=== PATIENT | male | born 1940 | race Caucasian/White ===

== ENCOUNTER 2024-12-16 15:31 | Outpatient (CLI) | payer MEDICARE, SELFPAY ==
--- NOTE | 2024-12-16 15:39 | MRR_ITS ---
PROCEDURE INFORMATION: Exam: MR Face Without and With Contrast Exam date and time: 12/16/2024 3:52 PM Age: 84 years old Clinical indication: Condition or disease; Other: Mass; -pain on back of tongue favoring left side swollen area at base of left ear; Additional info: Neoplasm uncertain behavior oropharynx TECHNIQUE: Imaging protocol: Magnetic resonance imaging of the face including orbits without and with contrast. Contrast material: MULTIHANCE; Contrast volume: 18 ml; Contrast route: INTRAVENOUS (IV); COMPARISON: No relevant prior studies available. FINDINGS: Paranasal sinuses: No fluid levels. Orbital cavities: Orbits are normal. Globes are unremarkable. Nasopharynx: Pharynx: See Soft tissues finding. Larynx: Visualized larynx is unremarkable. Salivary glands: Visualized submandibular and parotid glands are unremarkable. Lymph nodes: Bilateral cervical lymphadenopathy is noted. Most prominently this is seen in left level 3 and 4 and right level 1B. There also level 2a lymph nodes adjacent to the anterior margin of the sternocleidomastoid muscle. Abnormal lymph nodes on the left appear to compress the left internal jugular vein which can not be entirely followed through its course. Soft tissues: Mass centered in the left side of the oral tongue is noted with extension across the midline to the right, inferiorly to the floor of the mouth and laterally just beyond the mylohyoid muscle, into the submandibular space. Posteriorly there is effacement of the left side of the oropharynx and extension into the left oral tonsil. Mass overall measures approximately 5.4 x 4.7 x 5.6 cm. Bones/joints: Unremarkable. MR/MR orbit face neck wo/w* [id number] IMPRESSION: 1. Mass centered in the left side of the oral tongue is noted with extension across the midline to the right, inferiorly to the floor of the mouth and laterally just beyond the mylohyoid muscle, into the submandibular space. Posteriorly there is effacement of the left side of the oropharynx and extension into the left oral tonsil. Mass overall measures approximately 5.4 x 4.7 x 5.6 cm. 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 2. Abnormal lymph nodes on the left appear to compress the left internal jugular vein which can not be entirely followed through its course.
[2024-12-16] MEDS: gadobenate dimeglumine 20 mL vial 18 ML IV (16:15)
== END 2024-12-16 15:32 | disposition home or self-care (01) ==
LOC: RAD 15:34
PROVIDERS: Family Provider Nurse Practitioner Family; PCP Nurse Practitioner Family; Visit Provider Nurse Practitioner Family
DX: D37.05 Neoplasm of uncertain behavior of pharynx (principal); H92.02 Otalgia, left ear; I89.8 Other specified noninfective disorders of lymphatic vessels and lymph nodes
CPT/HCPCS: 70543; A9577

== ENCOUNTER → 2025-01-12 14:15 | Outpatient (BNVA) | payer MEDICARE, SELFPAY | PROVIDERS: PCP Nurse Practitioner Family; Visit Provider Surgery | DX: C01 Malignant neoplasm of base of tongue (principal) | CPT/HCPCS: 74018; 99204 ==

== ENCOUNTER 2025-01-18 07:15 | Day surgery (SDC) | payer MEDICARE, SELFPAY ==
[2025-01-18] VITALS (16 sets, daily range): BP systolic 78–136; BP diastolic 40–67; PULSE 53–76; RESP 14–20; TEMP 36.1–36.5; O2SAT 93–100; BMI 27.5
--- NOTE | 2025-01-18 07:53 | P.HPUD_ITS ---
Surgery/Procedure H&P Update DATE OF PROCEDURE: January 18, 2025 DATE H&P PERFORMED: 01/12/25 H&P UPDATE INFORMATION: I have reviewed H&P completed within last 30 days, I have examined patient prior to procedure, No changes to prior documentation, H&P is in [facility] EMR on date indicated and Risks and benefits of the procedure reviewed PLANNED PROCEDURE: Operation Date: 01/18/25 09:00 Proposed Procedures p Portacath Placement 74549 C01(Not Applicable) - Christopher Ricardo MD s Peg Tube Placement with guidance of an EGD(Not Applicable) - Christopher Ricardo MD s EGD with Biopsy(Not Applicable) - Christopher Ricardo MD
--- NOTE | 2025-01-18 08:59 | ANES.PREANE2 ---
Pre-Anesthetic Assessment Height/Weight: Height 5 ft 8 in Weight 181 lb Temp Pulse Resp BP Pulse Ox O2 Del Method 97.7 F 58 L 18 136/67 96 Room Air 01/18/25 07:37 01/18/25 07:37 01/18/25 07:37 01/18/25 07:37 01/18/25 07:37 01/18/25 07:37 Preop Diagnosis: Tongue mass Operation Date: 01/18/25 09:00 Proposed Procedures p Portacath Placement 48385 C01(Not Applicable) - Christopher Ricardo MD s Peg Tube Placement with guidance of an EGD(Not Applicable) - Christopher Ricardo MD s EGD with Biopsy(Not Applicable) - Christopher Ricardo MD Was Beta Zunilda taken within 24 hours: N/A Was Clonidine taken within 24 hours: N/A Last intake: Intake Last Liquid Date 01/17/25 Last Liquid Time 21:00 Last Solid Date 01/17/25 Last Solid Time 19:00 Social No alcohol and No tobacco Exam alert, oriented x 3, clear to auscultation bilaterally and regular rate & rhythm Airway Submandibular: Other (Large tongue mass) Mallampati: Class III Comments: Comments: Edentulous Anesthetic Plan ASA status: 3 Anesthesia: General Other: No prior issues with anesthesia NPO since yesterday evening Patient has a large mass on the base of the tongue Patient notes that he is unable to wear dentures and therefore his food has to be pur?ed but he states he is able to swallow just fine and has no breathing complications. 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 Plan for GETA with video laryngoscopy Medications/Allergies Home Medications ?Medication ?Instructions ?Recorded ?Confirmed ?Last Taken ?Type acetaminophen 650 mg 650 mg PO Q12H 01/06/25 01/14/25 01/17/25 History tablet,extended release (Tylenol Arthritis Pain) lisinopril 30 mg tablet 30 mg PO DAILY 01/06/25 01/14/25 01/17/25 History verapamil 240 mg tablet,extended 240 mg PO DAILY 01/06/25 01/14/25 01/17/25 History release Allergies Allergy/AdvReac Type Severity Reaction Status Date / Time No Known Drug Allergies Allergy Unknown Unknown Verified 01/12/25 14:18 Current Medications Generic Name Dose Route Start Last Admin Trade Name Freq PRN Reason Stop Dose Admin Sodium Chloride 1,000 mls @ 30 mls/hr 01/18/25 07:30 01/18/25 07:56 Sodium Chloride 0.9% IV 01/19/25 07:29 30 mls/hr .Q24H ALBA Administration PFSH Anesthesia Social History Smoking and tobacco/nicotine status: former use of tobacco/nicotine
[2025-01-18] MEDS: ceFAZolin 2,000 mg SDV 2000 MG IVP (09:05)
--- NOTE | 2025-01-18 09:14 | SC_ITS ---
WS: [id number] INTRAOPERATIVE TECHNIQUE: 2 Spot fluoroscopic images for intraoperative purposes. FLUOROSCOPY TIME: 14.2 seconds CLINICAL INFORMATION: GIOVANA CATH FINDINGS: RIGHT Port-A-Cath with tip in the SVC in good position. Endotracheal tube with tip above the dori. No visualized pneumothorax. SC/C-arm FL for CVA [id number] IMPRESSION: Images obtained for intraoperative purposes.
[2025-01-18] MEDS: BUPivacaine 0.25% INJ 10 mL INJECTION (09:29)
[2025-01-18] MEDS: heparin, porcine 1,000 unit/mL INJ 10 mL 10000 UNIT IRRIGATION (09:29)
[2025-01-18] MEDS: lidocaine-epi 1% 20 mL INJ (09:29)
--- NOTE | 2025-01-18 10:28 | PM.OP ---
Operative Report Date of procedure: January 18, 2025 Pre-op diagnosis: History of head and neck cancer. Post-op diagnosis: Same Post-op findings: Normal vascular anatomy of the right IJ Procedure done: Port-A-Cath placement and PEG tube placement Pathology: None Surgeon: Christopher Ricardo MD Computer Numerical Control Machinist: OSCAR OR STaff Estimated blood loss: 5 Complications: none apparent Brief History: Patient was referred to my office for Port-A-Cath placement and for PEG placement due to carcinoma of the base of the tongue causing dysphagia. After discussion we will resume benefits as documented. Note we decided to proceed. Procedure: Patient was brought into the OR, he was placed in a supine position, general anesthesia was given. Timeout was conducted after the skin was prepped and draped in the usual sterile fashion. I then proceeded to identify the right IJ vein with ultrasound, I infiltrated local anesthesia on top of the vein. I then proceeded to cannulate the vein under direct ultrasound guidance using an 18-gauge needle, the needle tip was seen entering the vein and immediate return of blood was noted. A wire was advanced through the needle and the needle was removed. The position of the wire was verified with ultrasound and fluoroscopy. The wire was then fixed to the drapes. I then placed my attention to the chest, local anesthesia was infiltrated in the previously marked area on the chest and then a tract connecting the chest to the wire insertion site in the neck. I then proceeded to make a 3.5 cm incision in the right upper chest, the incision was deepened to subcutaneous tissue with electrocautery and electrocautery was used to create the subcutaneous pocket to house the Port-A-Cath. I then proceeded to use a hemostat to create a tunnel from the chest wound to the neck. I then proceeded to make a 0.5 cm incision at the level of the wire insertion site in the neck. Hemostasis was verified. I then placed the Port-A-Cath in the pocket and tunneled the catheter using the provided tunneler. The catheter was cut to appropriate length under fluoroscopy guidance and then flushed. I then proceeded to insert an introducer with a peel-off sheath over the wire under direct fluoroscopic guidance. I then remove the wire and the introducer leaving the peel-off sheath in place. The catheter was then advanced through the peel-off sheath and the peel-off sheath was removed leaving the catheter in place. Fluoroscopy showed evidence of Adequate catheter position. I then proceeded to access the port; the port was retrieving blood and flushing fine, I then hep-locked the catheter. Hemostasis was verified. The wound was closed in layers using #3-0 Vicryl for the subcutaneous tissue and #4 Monocryl for the skin. Dermabond was applied. At the end of the procedure all counts were correct. The patient tolerated well the procedure and remained in the OR for PEG tube placement which will be dictated separately.
--- NOTE | 2025-01-18 12:15 | ANE.PACU2 ---
Inpatient post-anesthesia follow up: Airway intact: Yes Vital signs: Temperature 97.4 F Pulse Rate 53 Respiratory Rate 18 Blood Pressure 114/52 Pulse Oximetry 97 Oxygen Delivery Me thod Room Air Oxygen Flow Rate 5 Fraction of Inspir ed Oxygen Hydration adequate: Yes Nausea and vomiting: No Pain level: 1 Mental status: Baseline
== END 2025-01-18 12:15 | disposition home or self-care (01) ==
PROVIDERS: PCP Family Medicine; Visit Provider Surgery
PROC: (CPT 36561; principal; 2025-01-18 08:50)
PROC: 0DH63UZ Insertion of Feeding Device into Stomach, Percutaneous Approach (ICD-10-PCS; CPT 43246; 2025-01-18 08:50)
DX: C76.0 Malignant neoplasm of head, face and neck (principal); I10 Essential (primary) hypertension; Z87.891 Personal history of nicotine dependence
CPT/HCPCS: 36561; 77001; C1788; J0330; J0690; J1644; J2704; J3010; J3490; J7030; J9999

== ENCOUNTER 2025-02-03 08:36 | Oncology outpatient (recurring) (ONCR) | payer MEDICARE, SELFPAY ==
[2025-01-06 09:59] LABS: Hematocrit 41.0 % (37-53); Hemoglobin 13.50 g/dL (11.27-16.99); Mean Corpuscular HGB Conc 32.9 g/dL (30-55); Mean Corpuscular Hemoglobin 29.9 pg (27-33); Mean Corpuscular Volume 90.7 fl (82-101); Nucleated Red Blood Cells % 0 %; Platelet Count 166 10^3/cmm (157-399); Red Blood Count 4.52 10^6/uL (3.85-5.65); White Blood Count 8.14 10^3/uL (3.29-11.43)
--- NOTE | 2025-01-06 10:08 | N.ONRAD NP_ITS ---
[facility] Oncology New Patient Visit Patient: Richar Bailey MR#: [id number] : 1940 Age: 84 Sex: Male Dictated by: Israel Torres Date of Service: 01/06/2025 Referring Physician(s) : Dr. 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 Chief Complaint / History of Present Illness: This is a very pleasant 84-year-old male that looks younger than stated age. He saw his PCP who referred him to Dr. Dr. Alegria. He was found to have a mass involving the left retromolar trigone extending into the left oropharynx. Tongue deviates to the left posterior mobile tongue tethered to the left soft palate. Patient to have at least a 5 cm hard left BOT mass primarily submucosal with a small exophytic portion that is ulcerated. BX on 12/23/2024 showed ulcerated invasive SCC-MD left BOT. MRI of the orbits face and neck showed bilateral cervical lymphadenopathy prominently on the left level 3 4 and right level 1B there is also a level 2A lymph nodes adjacent to the anterior margin of the sternocleidomastoid muscle. The lymph nodes on the left appear to compress the left IJV. The mass centers on the left side of the oral tongue with extension across midline to the right inferiorly to the FOM and the laterally just beyond the mylohyoid muscle into the submandibular space. Posteriorly there is effacement of the left side of the oropharynx and extension into the left oral tonsil. Mass measures 5.4 x 4.7 x 5.6 cm. Patient has upper and lower dentures but cannot put in the lower dentures due to the mass. Current Medications: acetaminophen ER (Tylenol Arthritis Pain) 650 mg PO Q12H lisinopril mg PO verapamil ER mg PO Allergies: No Known Drug Allergies Allergy Medical History: No history of collagen vascular disease. No previous radiation therapy. Surgical History: As above plus appendectomy Family History: No history of carcinoma mother and father in her mid to late 90s Social History: Smoking and tobacco/nicotine status: former use of tobacco/nicotine 20 pack years. Patient chewed for approximately 15 more years. Patient admitted to drinking beer and liquor and quit in 73 when he quit smoking also. 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 Current Complaints / Review of Systems: . Vital Signs: Performed on 01/06/2025 8:57 AM BMI - 27.673 kg/m2 (high), Height - 68 in, Weight - 182 lbs, Temperature - 98.7 f, Pulse - 64 /min, Respiration - 17 /min, O2 Sat - 96 %, Pain - 0, Fatigue - 0 and BP - 144/ 53 mm(hg)(high/low). Physical Exam: Patient alert and oriented and answers questions appropriately. Neck shows no demonstratable lymphadenopathy even though MRI shows lymphadenopathy. Oral exam shows tethered left sided tumor base of tongue/tonsil and R MT. No bony tenderness appreciated. Lungs clear to auscultation abdomen soft nontender with no hepatosplenomegaly. Extremities intact x 4. Performance Status: KPS 90 Pathology: Primary, c01 - malignant neoplasm of base of tongue, Diagnosed 12/23/2024 (active) and Primary, c77.0 - secondary and unspecified malignant neoplasm of lymph nodes of head, face and neck, Diagnosed 12/16/2024 (active) . 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 Questions answered. NCCN guidelines version 1.2024 were discussed Side effects discussed Plan combined chemoradiation therapy utilizing IMRT based XRT to 7000 cGy in 25 fractions. Signed by: 01/06/2025 10:07:24 AM <<Signature on File>> Time spent with patient: 75 minutes including prep and examination CPT Code: CPT Code:
[2025-01-06 10:12] LABS: Alanine Aminotransferase 57 U/L (0-41); Albumin Level 4.5 g/dL (3.5-5.2); Alkaline Phosphatase 70 U/L (40-130); Anion Gap 17.7 (5-19); Aspartate Amino Transferase 21 U/L (0-40); Blood Urea Nitrogen 36 mg/dL (8-23); Calcium 10.0 mg/dL (8.5-10.5); Carbon Dioxide 23 mmol/L (22-29); Chloride 101 mmol/L (98-107); Creatinine Clr Calc Pharmacy 61.7180; Globulin 3.1 g/dL (1.3-4.6); Glucose 114 mg/dL (65-115); Osmolality Calculated 293 mOsm/kg (285-295); Potassium 4.7 mmol/L (3.5-5.1); Sodium 137 mmol/L (136-145); Total Protein 7.6 g/dL (6.6-8.7)
--- NOTE | 2025-01-15 12:30 | PETR_ITS ---
PROCEDURE INFORMATION: Exam: PET/CT Skull Base to Mid-thigh Exam date and time: 01/15/2025 2:00 PM Age: 84 years old Clinical indication: Condition or disease; Primary cancer: Cancer of base of tongue; Initial oncological staging assessment LABS AND CLINICAL REPORTS: Glucose: 106 mg/dl Treatment strategy for malignancy (PET staging): Initial Staging (PI) TECHNIQUE: Imaging protocol: Following at least four-hour fasting and following the injection of radiopharmaceutical, low dose CT images were obtained. Then, PET images were obtained. Attenuation corrected images were constructed using the CT scan. Fused images of PET and CT were reviewed. The standardized uptake values (SUV) reported below are maximum values within a region of interest, expressed in gm/ml. Exam includes orbital meatal line to mid-thigh. SUV normalization method: BodyWeight Radiopharmaceutical: 10.8 mCi F-18 FDG (Fluorodeoxyglucose), IV. Time of imaging post radiopharmaceutical administration: 51 minutes Injection site: left ac COMPARISON: 1. CR XR KUB [id number] 01/12/2025 4:28 PM 2. MR orbit face neck wo/w* [id number] 12/16/2024 3:52 PM FINDINGS: Brain: Visualized brain has normal physiologic uptake. Oral cavity: Large FDG avid left tongue mass shows SUV max 14.9, better delineation of margins on comparison MRI. Pharynx: No abnormal uptake. Larynx: No abnormal uptake. Lungs, pleura and trachea: No abnormal uptake. Bilateral calcified granulomata. Mild dependent atelectasis. Mild subsegmental atelectasis versus scarring at the lower lungs. No consolidation or mass. Heart: Normal physiologic uptake. Coronary arteries: Heavy coronary artery calcification. Mediastinal space: No abnormal uptake. Diaphragm: Small hiatal hernia. Liver: No abnormal uptake. Calcified granulomata. Gallbladder and biliary ducts: No abnormal uptake. Pancreas: No abnormal uptake. Spleen: No abnormal uptake. Calcified granulomata. Adrenal glands: No abnormal uptake. Kidneys and ureters: Normal physiologic uptake. Photopenic fluid density right renal cysts. Stomach and bowel: FDG uptake along the ascending colon with relative thickening at underdistended hepatic flexure. Reproductive: Prostatomegaly without abnormal uptake. Vasculature: No abnormal uptake. 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 Lymph nodes: Focal FDG uptake at the left lateral retropharyngeal region showing SUV max 10.3 on axial image 21 may represent abnormal lymph node. FDG avid bilateral level 2 cervical lymphadenopathy with index right-sided node measuring 1.4 cm in the short axis on axial image 38 showing SUV max 11.0 and index left-sided node measuring 0.8 cm in the short axis on axial image 35 showing SUV max 8.8. Bilateral level 5 cervical lymphadenopathy with index right-sided node measuring 0.9 cm in the short axis on axial image 50 showing SUV max 12.2 and left-sided node measuring approximately 1.2 cm in the short axis on axial image 57 showing SUV max 9.4. Skeleton: Degenerative changes along the axial and proximal appendicular skeletal system. Soft tissues: No abnormal uptake in the visualized head, neck, chest, abdomen, pelvis, and extremities. METRICS: Mediastinal blood pool: SUV mean 2.3 Liver uptake: SUV mean 2.6 PET/PET skull to thigh INIT [id number] IMPRESSION: 1. Large FDG avid left tongue mass compatible with malignancy. 2. Bilateral metastatic cervical lymphadenopathy, to include suspected abnormal lateral left retropharyngeal lymphadenopathy. 3. FDG uptake along the ascending colon with relative thickening at underdistended hepatic flexure may be physiologic, infectious or inflammatory, neoplasm not entirely excluded. 4. Additional chronic and incidental findings as above, to include atherosclerosis with heavy coronary artery calcification, 4.3 cm ascending aortic ectasia, and 3.1 cm infrarenal abdominal aortic aneurysm.
[2025-01-28 07:54] LABS: Hematocrit 37.8 % (37-53); Hemoglobin 12.30 g/dL (11.27-16.99); Mean Corpuscular HGB Conc 32.5 g/dL (30-55); Mean Corpuscular Hemoglobin 29.6 pg (27-33); Mean Corpuscular Volume 91.1 fl (82-101); Nucleated Red Blood Cells % 0 %; Platelet Count 170 10^3/cmm (157-399); Red Blood Count 4.15 10^6/uL (3.85-5.65); White Blood Count 6.94 10^3/uL (3.29-11.43)
[2025-01-28 08:12] LABS: Alanine Aminotransferase 22 U/L (0-41); Albumin Level 4.3 g/dL (3.5-5.2); Alkaline Phosphatase 58 U/L (40-130); Anion Gap 15.6 (5-19); Aspartate Amino Transferase 15 U/L (0-40); Blood Urea Nitrogen 29 mg/dL (8-23); Calcium 9.9 mg/dL (8.5-10.5); Carbon Dioxide 26 mmol/L (22-29); Chloride 100 mmol/L (98-107); Creatinine Clr Calc Pharmacy 68.2421; Globulin 2.8 g/dL (1.3-4.6); Glucose 113 mg/dL (65-115); Osmolality Calculated 291 mOsm/kg (285-295); Potassium 4.6 mmol/L (3.5-5.1); Sodium 137 mmol/L (136-145); Total Protein 7.1 g/dL (6.6-8.7)
[2025-01-28] MEDS: sodium chlor 0.9% + KCl 20 mEq 20 MEQ/1,000 ML BAG 800 MEQ IV (10:21)
[2025-01-28] MEDS: magnesium sulfate premix 2 GM/50 ML PIGGYBACK IV (10:23)
[2025-01-28] MEDS: aprepitant 130 mg/18 ml SDV IVP (11:47)
[2025-01-28] MEDS: diphenhydrAMINE 50 mg/mL SDV 1mL 25 MG IVP (11:54)
[2025-01-28] MEDS: SODIUM CHLORIDE 0.9% IV (12:32)
[2025-01-28] MEDS: CISPLATIN IV (12:32)
[2025-01-28] MEDS: FUROsemide 10 mg/mL SDV 2mL 20 MG IVP (13:45)
[2025-01-28 15:05] VITALS: BP 157/75; PULSE 55; RESP 17; TEMP 36.6; O2SAT 98
--- NOTE | 2025-02-02 09:37 | ONCRAD TMN_ITS ---
Radiation Oncology Weekly Treatment Management Patient: Richar Bailey MR#: [id number] : 1940 Attending Physician: Dr. Israel Torres Date of Service: 02/02/2025 Referring Physician(s) : Diagnosis: C01 - Malignant neoplasm of base of tongue, Diagnosed 12/23/2024 (Active) C77.0 - Secondary and unspecified malignant neoplasm of lymph nodes of head, face and neck, Diagnosed 12/16/2024 (Active) Radiotherapy to date: Course: BOT HN 2024, Treatment Site: BOT HN 70/63/56Gy, Ref. ID: [id number], Energy: 6X, Dose/Fx (cGy): 200, #Fx: 4 / 35, Dose Correction (cGy): 0, Total Dose Delivered (cGy): 800, Start Date: 01/28/2025, Elapsed Days: 5 Reason for visit: The patient is being seen today as part of their regularly scheduled weekly on treatment visits to assess for acute toxicities from radiotherapy. Review of Systems: Patient feels his feeding tube is too tight as it relates to the scan. He gets chemotherapy on labs are adequate at this time. He uses Magic mouthwash few times a day. He utilizes the PEG tube for fluid flushes only at this time. He has gained 2 pounds since last visit. He utilizes MiraLAX daily to maintain consistency. Vital Signs: Performed on 02/02/2025 9:21 AM BMI - 27.004 kg/m2 (high), Height - 68 in, Weight - 177.6 lbs, Temperature - 97.2 f, Pulse - 62 /min, Respiration - 18 /min, O2 Sat - 100 %, Pain - 0, Fatigue - 0 and BP - 155/ 69 mm(hg)(high/). Physical Exam: AAOx3. Skin around the feeding tube is slightly erythematous. No expression of pus noted. Imaging: Radiation therapy imaging related to accurate target localization (i.e. KV, MV and CBCT) was reviewed. Appropriate changes, if any, were made to ensure treatment accuracy. Plan: Continue XRT He is to see his surgeon today regarding his feeding tube Continue chemotherapy on . Signed by: Israel Torres 02/02/2025 9:36:38 AM
== END 2025-02-03 23:59 | disposition home or self-care (01) ==
PROVIDERS: Internal Medicine; Nurse Practitioner Family; PCP Nurse Practitioner Family; Referring Provider Anesthesiology; Visit Provider Radiology Radiation Oncology
DX: Z51.0 Encounter for antineoplastic radiation therapy (principal); C01 Malignant neoplasm of base of tongue; C77.0 Secondary and unspecified malignant neoplasm of lymph nodes of head, face and neck
CPT/HCPCS: 36415; 77300; 77301; 77334; 77338; 77386; 77470; 78815; 80053; 83615; 85025; 96366; 96368; 96375; 96413; 99024; 99204; 99205; 99213; 99215; A9552; J0185; J1100; J1200; J1938; J2469; J3475; J3480; J3490; J7040; J7050; J9060; J9999

== ENCOUNTER 2025-02-04 08:48 | Oncology outpatient (recurring) (ONCR) | payer MEDICARE, SELFPAY ==
[2025-02-04 09:30] LABS: Hematocrit 36.2 % (37-53); Hemoglobin 11.80 g/dL (11.27-16.99); Mean Corpuscular HGB Conc 32.6 g/dL (30-55); Mean Corpuscular Hemoglobin 29.4 pg (27-33); Mean Corpuscular Volume 90.3 fl (82-101); Nucleated Red Blood Cells % 0 %; Platelet Count 133 10^3/cmm (157-399); Red Blood Count 4.01 10^6/uL (3.85-5.65); White Blood Count 8.00 10^3/uL (3.29-11.43)
[2025-02-04 09:40] LABS: Alanine Aminotransferase 31 U/L (0-41); Albumin Level 4.0 g/dL (3.5-5.2); Alkaline Phosphatase 61 U/L (40-130); Anion Gap 16.4 (5-19); Aspartate Amino Transferase 21 U/L (0-40); Blood Urea Nitrogen 26 mg/dL (8-23); Calcium 9.5 mg/dL (8.5-10.5); Carbon Dioxide 25 mmol/L (22-29); Chloride 99 mmol/L (98-107); Creatinine Clr Calc Pharmacy 68.5823; Globulin 2.9 g/dL (1.3-4.6); Glucose 112 mg/dL (65-115); Osmolality Calculated 288 mOsm/kg (285-295); Potassium 4.4 mmol/L (3.5-5.1); Sodium 136 mmol/L (136-145); Total Protein 6.9 g/dL (6.6-8.7)
[2025-02-04] MEDS: sodium chlor 0.9% + KCl 20 mEq 20 MEQ/1,000 ML BAG 500 MEQ IV (11:26)
[2025-02-04] MEDS: magnesium sulfate premix 2 GM/50 ML PIGGYBACK IV (11:27)
[2025-02-04] MEDS: aprepitant 130 mg/18 ml SDV IVP (11:28)
[2025-02-04] MEDS: diphenhydrAMINE 50 mg/mL SDV 1mL 25 MG IVP (11:39)
[2025-02-04] MEDS: CISPLATIN IV (13:28)
[2025-02-04] MEDS: SODIUM CHLORIDE 0.9% IV (13:28)
[2025-02-04] MEDS: FUROsemide 10 mg/mL SDV 2mL 20 MG IVP (14:27)
[2025-02-04 15:20] VITALS: BP 118/62; PULSE 79; RESP 18; TEMP 36.1; O2SAT 96
== END 2025-02-04 23:59 | disposition home or self-care (01) ==
PROVIDERS: Nurse Practitioner Family; PCP Nurse Practitioner Family; Referring Provider Anesthesiology; Visit Provider Radiology Radiation Oncology
DX: Z51.0 Encounter for antineoplastic radiation therapy (principal); Z51.11 Encounter for antineoplastic chemotherapy; C01 Malignant neoplasm of base of tongue; R12 Heartburn; Z87.891 Personal history of nicotine dependence; Z95.828 Presence of other vascular implants and grafts; Z79.899 Other long term (current) drug therapy; Z79.630 Long term (current) use of alkylating agent
CPT/HCPCS: 77336; 77386; 80053; 85025; 96365; 96366; 96367; 96368; 96375; 96417; 99214; J0185; J1100; J1200; J1938; J2469; J3475; J3480; J3490; J7040; J7050; J9060; J9999

== ENCOUNTER 2025-02-18 09:45 | Oncology outpatient (recurring) (ONCR) | payer MEDICARE, SELFPAY ==
--- NOTE | 2025-02-09 09:49 | ONCRAD TMN_ITS ---
Radiation Oncology Weekly Treatment Management Patient: Richar Bailey MR#: [id number] : 1940 Attending Physician: Dr. Ba Zuniga Date of Service: 02/09/2025 Referring Physician(s) : Diagnosis: C01 - Malignant neoplasm of base of tongue, Diagnosed 12/23/2024 (Active) C77.0 - Secondary and unspecified malignant neoplasm of lymph nodes of head, face and neck, Diagnosed 12/16/2024 (Active) Radiotherapy to date: Course: BOT HN 2024, Treatment Site: BOT HN 70/63/56Gy, Ref. ID: [id number], Energy: 6X, Dose/Fx (cGy): 200, #Fx: 9 / 35, Dose Correction (cGy): 0, Total Dose Delivered (cGy): 1,800, Start Date: 01/28/2025, Elapsed Days: 12 Reason for visit: The patient is being seen today as part of their regularly scheduled weekly on treatment visits to assess for acute toxicities from radiotherapy. Review of Systems: Eating well. Some loss of taste and dry mouth. Gargling with salt and soda. Very little swallowing pain. Constipation treated with Miralax and M of M. PEG tube flushed. Tightness of collar adjusted. Some discharge around PEG. Vital Signs: Performed on 02/09/2025 9:03 AM BMI - 26.578 kg/m2 (high), Height - 68 in, Weight - 174.8 lbs, Temperature - 97.2 f, Pulse - 56 /min (low), Respiration - 17 /min, O2 Sat - 96 %, Pain - 0, Fatigue - 0 and BP - 134/ 68 mm(hg). Physical Exam: PEG tube site good. Collar well placed not excessively tight. Minimal erythema around exit site. Imaging: Radiation therapy imaging related to accurate target localization (i.e. KV, MV and CBCT) was reviewed. Appropriate changes, if any, were made to ensure treatment accuracy. Plan: Good tolerance of treatment. Continue as planned. Signed by: Dr. Ba Zuniga 02/09/2025 9:48:18 AM
[2025-02-11 09:05] LABS: Hematocrit 33.9 % (37-53); Hemoglobin 11.30 g/dL (11.27-16.99); Mean Corpuscular HGB Conc 33.3 g/dL (30-55); Mean Corpuscular Hemoglobin 30.2 pg (27-33); Mean Corpuscular Volume 90.6 fl (82-101); Nucleated Red Blood Cells % 0 %; Platelet Count 122 10^3/cmm (157-399); Red Blood Count 3.74 10^6/uL (3.85-5.65); White Blood Count 8.14 10^3/uL (3.29-11.43)
[2025-02-11 09:24] LABS: Alanine Aminotransferase 70 U/L (0-41); Albumin Level 4.0 g/dL (3.5-5.2); Alkaline Phosphatase 71 U/L (40-130); Anion Gap 15.6 (5-19); Aspartate Amino Transferase 30 U/L (0-40); Blood Urea Nitrogen 25 mg/dL (8-23); Calcium 9.4 mg/dL (8.5-10.5); Carbon Dioxide 25 mmol/L (22-29); Chloride 102 mmol/L (98-107); Creatinine Clr Calc Pharmacy 68.4120; Globulin 2.9 g/dL (1.3-4.6); Glucose 111 mg/dL (65-115); Osmolality Calculated 291 mOsm/kg (285-295); Potassium 4.6 mmol/L (3.5-5.1); Sodium 138 mmol/L (136-145); Total Protein 6.9 g/dL (6.6-8.7)
[2025-02-11] MEDS: magnesium sulfate premix 2 GM/50 ML PIGGYBACK IV (11:18)
[2025-02-11] MEDS: sodium chlor 0.9% + KCl 20 mEq 20 MEQ/1,000 ML BAG 500 MEQ IV (11:18)
[2025-02-11] MEDS: aprepitant 130 mg/18 ml SDV IVP (12:23)
[2025-02-11] MEDS: diphenhydrAMINE 50 mg/mL SDV 1mL 25 MG IVP (12:30)
[2025-02-11] MEDS: CISPLATIN IV (13:17)
[2025-02-11] MEDS: SODIUM CHLORIDE 0.9% IV (13:17)
[2025-02-11] MEDS: FUROsemide 10 mg/mL SDV 2mL 20 MG IVP (14:23)
--- NOTE | 2025-02-16 09:37 | ONCRAD TMN_ITS ---
Radiation Oncology Weekly Treatment Management Patient: Lynn Thornton MR#: [id number] : 1940> Attending Physician: Israel Torres Date of Service: 02/16/2025 Referring Physician(s) : Diagnosis: C01 - Malignant neoplasm of base of tongue, Diagnosed 12/23/2024 (Active) C77.0 - Secondary and unspecified malignant neoplasm of lymph nodes of head, face and neck, Diagnosed 12/16/2024 (Active) Radiotherapy to date: Course: BOT HN 2024, Treatment Site: BOT HN 70/63/56Gy, Ref. ID: [id number], Energy: 6X, Dose/Fx (cGy): 200, #Fx: 14 / 35, Dose Correction (cGy): 0, Total Dose Delivered (cGy): 2,800, Start Date: 01/28/2025, Elapsed Days: 19 Reason for visit: The patient is being seen today as part of their regularly scheduled weekly on treatment visits to assess for acute toxicities from radiotherapy. 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 He denies any problems the state. He only uses feeding tube for water flushes. He lost 1 pound. He continues with smoothies. Labs are adequate with lowering platelet count of 102,000. Vital Signs: Performed on 02/16/2025 8:54 AM BMI - 26.518 kg/m2 (high), Height - 68 in, Weight - 174.4 lbs, Temperature - 97 f, Pulse - 64 /min, Respiration - 18 /min, O2 Sat - 95 % (low), Pain - 0, Fatigue - 0 and BP - 161/ 82 mm(hg)(high/). Physical Exam: AAOx3. Skin intact. He uses Druze cream with good response Imaging: Radiation therapy imaging related to accurate target localization (i.e. KV, MV and CBCT) was reviewed. Appropriate changes, if any, were made to ensure treatment accuracy. Plan: Continue XRT Continue chemotherapy as directed Continue using Druze cream. Signed by: Israel Torres 02/16/2025 9:36:29 AM
[2025-02-18 07:55] LABS: Hematocrit 33.6 % (37-53); Hemoglobin 11.40 g/dL (11.27-16.99); Mean Corpuscular HGB Conc 33.9 g/dL (30-55); Mean Corpuscular Hemoglobin 30.9 pg (27-33); Mean Corpuscular Volume 91.1 fl (82-101); Nucleated Red Blood Cells % 0 %; Platelet Count 93 10^3/cmm (157-399); Red Blood Count 3.69 10^6/uL (3.85-5.65); White Blood Count 5.99 10^3/uL (3.29-11.43)
[2025-02-18 08:16] LABS: Alanine Aminotransferase 28 U/L (0-41); Albumin Level 4.0 g/dL (3.5-5.2); Alkaline Phosphatase 71 U/L (40-130); Anion Gap 12.7 (5-19); Aspartate Amino Transferase 14 U/L (0-40); Blood Urea Nitrogen 27 mg/dL (8-23); Calcium 9.5 mg/dL (8.5-10.5); Carbon Dioxide 26 mmol/L (22-29); Chloride 100 mmol/L (98-107); Creatinine Clr Calc Pharmacy 68.4120; Globulin 2.9 g/dL (1.3-4.6); Glucose 108 mg/dL (65-115); Osmolality Calculated 284 mOsm/kg (285-295); Potassium 4.7 mmol/L (3.5-5.1); Sodium 134 mmol/L (136-145); Total Protein 6.9 g/dL (6.6-8.7)
[2025-02-18 10:24] VITALS: BMI 26.4
[2025-02-18 10:25] VITALS: BP 158/63; PULSE 71; RESP 16; TEMP 36.7; O2SAT 97
[2025-02-18] MEDS: magnesium sulfate premix 2 GM/50 ML PIGGYBACK IV (10:56)
[2025-02-18] MEDS: sodium chlor 0.9% + KCl 20 mEq 20 MEQ/1,000 ML BAG 500 MEQ IV (10:57)
[2025-02-18] MEDS: aprepitant 130 mg/18 ml SDV IVP (12:07)
[2025-02-18] MEDS: diphenhydrAMINE 50 mg/mL SDV 1mL 25 MG IVP (12:15)
[2025-02-18] MEDS: CISPLATIN IV (12:57)
[2025-02-18] MEDS: SODIUM CHLORIDE 0.9% IV (12:57)
[2025-02-18] MEDS: FUROsemide 10 mg/mL SDV 2mL 20 MG IVP (14:45)
[2025-02-18 15:58] VITALS: BP 123/69; PULSE 53; RESP 16; TEMP 36.6; O2SAT 96
== END 2025-02-18 23:59 | disposition home or self-care (01) ==
PROVIDERS: Nurse Practitioner; Nurse Practitioner Family; PCP Nurse Practitioner Family; Referring Provider Anesthesiology; Visit Provider Radiology Radiation Oncology
DX: Z53.9 Procedure and treatment not carried out, unspecified reason; Z51.0 Encounter for antineoplastic radiation therapy; Z51.11 Encounter for antineoplastic chemotherapy; C01 Malignant neoplasm of base of tongue; C77.0 Secondary and unspecified malignant neoplasm of lymph nodes of head, face and neck; Z79.630 Long term (current) use of alkylating agent
CPT/HCPCS: 77336; 77386; 80053; 85025; 96361; 96368; 96375; 96413; 99024; 99214; J0185; J1100; J1200; J1938; J2469; J3475; J3480; J3490; J7040; J7050; J9060; J9999

== ENCOUNTER 2025-03-05 08:32 | Oncology outpatient (recurring) (ONCR) | payer MEDICARE, SELFPAY ==
--- NOTE | 2025-02-23 09:26 | ONCRAD TMN_ITS ---
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 ID: PTV 70, Energy: 6X, Dose/Fx (cGy): 200, #Fx: 35, Dose Correction (cGy): 0, Total Dose Delivered (cGy): 3,800, Start Date: 01/28/2025, End Date: 02/23/2025, Elapsed Days: 26 Reason for visit: The patient is being seen today as part of their regularly scheduled weekly on treatment visits to assess for acute toxicities from radiotherapy. Review of Systems: Patient has chemotherapy on . Medical oncology CASH MANAGEMENT COORDINATOR looked at his feeding tube as she had prescribed him Keflex. She is there is mild drainage and she is going to reorder the Keflex. We recommend increasing creams and will use spray or Aquaphor. He continues to use oral foods still. Vital Signs: Performed on 02/23/2025 8:53 AM BMI - 26.426 kg/m2 (high), Height - 68 in, Weight - 173.8 lbs, Temperature - 96.5 f, Pulse - 64 /min, Respiration - 17 /min, O2 Sat - 97 %, Pain - 0, Fatigue - 0 and BP - 157/ 96 mm(hg)(high). Physical Exam: AAOx3. Skin intact. No mucosal breakdown Imaging: Radiation therapy imaging related to accurate target localization (i.e. KV, MV and CBCT) was reviewed. Appropriate changes, if any, were made to ensure treatment accuracy. Plan: Continue XRT. Add in spray Aquaphor liberally Chemotherapy on Refill on pilocarpine for dry mouth which has been helping Refill of Keflex has been ordered by [place] CASH MANAGEMENT COORDINATOR Signed by: Israel Torres 02/23/2025 9:24:34 AM
[2025-02-25 08:41] LABS: Hematocrit 32.6 % (37-53); Hemoglobin 10.80 g/dL (11.27-16.99); Mean Corpuscular HGB Conc 33.1 g/dL (30-55); Mean Corpuscular Hemoglobin 30.0 pg (27-33); Mean Corpuscular Volume 90.6 fl (82-101); Nucleated Red Blood Cells % 0 %; Platelet Count 69 10^3/cmm (157-399); Red Blood Count 3.60 10^6/uL (3.85-5.65); White Blood Count 4.55 10^3/uL (3.29-11.43)
[2025-02-25 09:08] LABS: Alanine Aminotransferase 22 U/L (0-41); Albumin Level 4.1 g/dL (3.5-5.2); Alkaline Phosphatase 67 U/L (40-130); Anion Gap 13.6 (5-19); Aspartate Amino Transferase 15 U/L (0-40); Blood Urea Nitrogen 22 mg/dL (8-23); Calcium 9.1 mg/dL (8.5-10.5); Carbon Dioxide 25 mmol/L (22-29); Chloride 102 mmol/L (98-107); Globulin 2.6 g/dL (1.3-4.6); Glucose 114 mg/dL (65-115); Osmolality Calculated 286 mOsm/kg (285-295); Potassium 4.6 mmol/L (3.5-5.1); Sodium 136 mmol/L (136-145); Total Protein 6.7 g/dL (6.6-8.7)
[2025-02-25] MEDS: sodium chlor 0.9% + KCl 20 mEq 20 MEQ/1,000 ML BAG 500 MEQ IV (09:22)
[2025-02-25] MEDS: magnesium sulfate premix 2 GM/50 ML PIGGYBACK IV (09:23)
--- NOTE | 2025-03-02 09:12 | ONCRAD TMN_ITS ---
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 ID: PTV 70, Energy: 6X, Dose/Fx (cGy): 200, #Fx: 35, Dose Correction (cGy): 0, Total Dose Delivered (cGy): 4,800, Start Date: 01/28/2025, Elapsed Days: 33 Reason for visit: The patient is being seen today as part of their regularly scheduled weekly on treatment visits to assess for acute toxicities from radiotherapy. 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 He was unable to receive chemo last week as his platelets were 69,000. He denies any significant problems. He does nightly salt water washes. Vital Signs: Performed on 03/02/2025 8:40 AM BMI - 26.305 kg/m2 (high), Height - 68 in, Weight - 173 lbs, Temperature - 96.9 f, Pulse - 65 /min, Respiration - 17 /min, O2 Sat - 99 %, Pain - 0, Fatigue - 0 and BP - 146/ 70 mm(hg)(high/). Physical Exam: AAox3. Erythema in the mucosal sites orally. Imaging: Radiation therapy imaging related to accurate target localization (i.e. KV, MV and CBCT) was reviewed. Appropriate changes, if any, were made to ensure treatment accuracy. Plan: Continue XRT Continue salt water gargles. Chemotherapy most likely this week. Signed by: Israel Torres 03/02/2025 9:12:01 AM
[2025-03-04 09:04] LABS: Hematocrit 32.9 % (37-53); Hemoglobin 10.90 g/dL (11.27-16.99); Mean Corpuscular HGB Conc 33.1 g/dL (30-55); Mean Corpuscular Hemoglobin 30.7 pg (27-33); Mean Corpuscular Volume 92.7 fl (82-101); Nucleated Red Blood Cells % 0 %; Platelet Count 70 10^3/cmm (157-399); Red Blood Count 3.55 10^6/uL (3.85-5.65); White Blood Count 4.05 10^3/uL (3.29-11.43)
[2025-03-04] MEDS: sodium chlor 0.9% + KCl 20 mEq 20 MEQ/1,000 ML BAG 500 MEQ IV (09:21)
[2025-03-04 09:26] LABS: Alanine Aminotransferase 37 U/L (0-41); Albumin Level 4.0 g/dL (3.5-5.2); Alkaline Phosphatase 72 U/L (40-130); Anion Gap 16.4 (5-19); Aspartate Amino Transferase 24 U/L (0-40); Blood Urea Nitrogen 22 mg/dL (8-23); Calcium 9.6 mg/dL (8.5-10.5); Carbon Dioxide 24 mmol/L (22-29); Chloride 100 mmol/L (98-107); Creatinine Clr Calc Pharmacy 49.3830; Globulin 2.8 g/dL (1.3-4.6); Glucose 118 mg/dL (65-115); Magnesium 1.8 mg/dL (1.7-2.3); Osmolality Calculated 286 mOsm/kg (285-295); Potassium 4.4 mmol/L (3.5-5.1); Sodium 136 mmol/L (136-145); Total Protein 6.8 g/dL (6.6-8.7)
[2025-03-04] MEDS: magnesium sulfate premix 2 GM/50 ML PIGGYBACK IV (10:00)
[2025-03-04] MEDS: ROMIPLOSTIM 125 MCG 80 MCG SUBCUT (11:36)
== END 2025-03-07 23:59 | disposition home or self-care (01) ==
PROVIDERS: Internal Medicine; PCP Nurse Practitioner Family; Referring Provider Anesthesiology; Visit Provider Radiology Radiation Oncology
DX: Z51.0 Encounter for antineoplastic radiation therapy (principal); C01 Malignant neoplasm of base of tongue; C77.0 Secondary and unspecified malignant neoplasm of lymph nodes of head, face and neck
CPT/HCPCS: 77336; 77386; 80053; 83615; 83735; 85025; 96365; 96366; 96367; 96377; 99024; 99213; J2802; J3475; J3480

== ENCOUNTER 2025-03-18 07:30 | Oncology outpatient (recurring) (ONCR) | payer MEDICARE, SELFPAY ==
--- NOTE | 2025-03-09 09:13 | ONCRAD TMN_ITS ---
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 ID: PTV 70, Energy: 6X, Dose/Fx (cGy): 200, #Fx: 28 / 35, Dose Correction (cGy): 0, Total Dose Delivered (cGy): 5,600, Start Date: 01/28/2025, Elapsed Days: 40 Reason for visit: The patient is being seen today as part of their regularly scheduled weekly on treatment visits to assess for acute toxicities from radiotherapy. Review of Systems: No chemo last week platelets down to 70,000. He is lost 2 pounds but is eaten anything he can. Vital Signs: Performed on 03/09/2025 8:41 AM BMI - 26.001 kg/m2 (high), Height - 68 in, Weight - 171 lbs, Temperature - 97 f, Pulse - 69 /min, Respiration - 18 /min, O2 Sat - 99 %, Pain - 0, Fatigue - 0 and BP - 151/ 71 mm(hg)(high/). Physical Exam: AAOx3. Skin mild moist desquamation at the the crease of the neck. He continues to use Aquaphor. We may need to start Silvadene. Imaging: Radiation therapy imaging related to accurate target localization (i.e. KV, MV and CBCT) was reviewed. Appropriate changes, if any, were made to ensure treatment accuracy. Plan: Continue XRT Consider Silvadene. Platelet count was 70,000 last week so no chemotherapy but will check on . Signed by: Israel Torres 03/09/2025 9:12:20 AM
[2025-03-11 07:59] VITALS: BP 143/65; PULSE 60; RESP 16; TEMP 36.6; O2SAT 99
[2025-03-11] MEDS: magnesium sulfate premix 2 GM/50 ML PIGGYBACK IV (08:01)
[2025-03-11] MEDS: sodium chlor 0.9% + KCl 20 mEq 20 MEQ/1,000 ML BAG 500 MEQ IV (08:01)
[2025-03-11 08:10] LABS: Hematocrit 31.8 % (37-53); Hemoglobin 10.60 g/dL (11.27-16.99); Mean Corpuscular HGB Conc 33.3 g/dL (30-55); Mean Corpuscular Hemoglobin 31.0 pg (27-33); Mean Corpuscular Volume 93.0 fl (82-101); Nucleated Red Blood Cells % 0 %; Platelet Count 183 10^3/cmm (157-399); Red Blood Count 3.42 10^6/uL (3.85-5.65); White Blood Count 3.59 10^3/uL (3.29-11.43)
[2025-03-11 08:28] LABS: Alanine Aminotransferase 20 U/L (0-41); Albumin Level 4.1 g/dL (3.5-5.2); Alkaline Phosphatase 68 U/L (40-130); Anion Gap 15.4 (5-19); Aspartate Amino Transferase 15 U/L (0-40); Blood Urea Nitrogen 21 mg/dL (8-23); Calcium 9.7 mg/dL (8.5-10.5); Carbon Dioxide 25 mmol/L (22-29); Chloride 98 mmol/L (98-107); Creatinine Clr Calc Pharmacy 54.0492; Globulin 2.8 g/dL (1.3-4.6); Glucose 113 mg/dL (65-115); Osmolality Calculated 282 mOsm/kg (285-295); Potassium 4.4 mmol/L (3.5-5.1); Sodium 134 mmol/L (136-145); Total Protein 6.9 g/dL (6.6-8.7)
[2025-03-11] MEDS: aprepitant 130 mg/18 ml SDV IVP (09:59)
[2025-03-11] MEDS: diphenhydrAMINE 50 mg/mL SDV 1mL 25 MG IVP (10:05)
[2025-03-11] MEDS: SODIUM CHLORIDE 0.9% IV (10:59)
[2025-03-11] MEDS: CISPLATIN IV (10:59)
[2025-03-11] MEDS: FUROsemide 10 mg/mL SDV 2mL 20 MG IVP (12:04)
--- NOTE | 2025-03-16 09:41 | ONCRAD TMN_ITS ---
Radiation Oncology Weekly Treatment Management Patient: Richar Bailey MR#: [id number] : 1940 Attending Physician: Dr. 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 ID: PTV 70, Energy: 6X, Dose/Fx (cGy): 200, #Fx: 32 / 35, Dose Correction (cGy): 0, Total Dose Delivered (cGy): 6,400, Start Date: 01/28/2025, End Date: 03/15/2025, Elapsed Days: 46 Reason for visit: The patient is being seen today as part of their regularly scheduled weekly on treatment visits to assess for acute toxicities from radiotherapy. Review of Systems: Eating all food via mouth. PEG tube is in but not used. Gargling with salt and soda. No taste. No real sore throat. Remaining active. Vital Signs: Performed on 03/16/2025 8:50 AM BMI - 26.274 kg/m2 (high), Height - 68 in, Weight - 172.8 lbs, Temperature - 96.5 f, Pulse - 97 /min, Respiration - 17 /min, O2 Sat - 69 % (low), Pain - 0, Fatigue - 0 and BP - 158/ 66 mm(hg)(high/). Physical Exam: Neck erythema with no desquamation. No palpable adenopathy. Oral cavity erythema with no visible mass or focal lesions seen. Imaging: Radiation therapy imaging related to accurate target localization (i.e. KV, MV and CBCT) was reviewed. Appropriate changes, if any, were made to ensure treatment accuracy. Plan: Good tolerance of treatment with pleasing response seen. He will keep PEG tube in until it is clear that no delayed toxicity occurs after treatment is done. Signed by: Dr. Ba Zuniga 03/16/2025 9:39:37 AM
[2025-03-18 07:38] LABS: Hematocrit 31.9 % (37-53); Hemoglobin 10.50 g/dL (11.27-16.99); Mean Corpuscular HGB Conc 32.9 g/dL (30-55); Mean Corpuscular Hemoglobin 31.2 pg (27-33); Mean Corpuscular Volume 94.7 fl (82-101); Nucleated Red Blood Cells % 0 %; Platelet Count 210 10^3/cmm (157-399); Red Blood Count 3.37 10^6/uL (3.85-5.65); White Blood Count 3.89 10^3/uL (3.29-11.43)
[2025-03-18 07:53] VITALS: BMI 26.7
[2025-03-18 07:53] LABS: Alanine Aminotransferase 27 U/L (0-41); Albumin Level 4.1 g/dL (3.5-5.2); Alkaline Phosphatase 70 U/L (40-130); Anion Gap 14.4 (5-19); Aspartate Amino Transferase 21 U/L (0-40); Blood Urea Nitrogen 19 mg/dL (8-23); Calcium 9.4 mg/dL (8.5-10.5); Carbon Dioxide 26 mmol/L (22-29); Chloride 100 mmol/L (98-107); Creatinine Clr Calc Pharmacy 67.5615; Globulin 2.6 g/dL (1.3-4.6); Glucose 117 mg/dL (65-115); Osmolality Calculated 285 mOsm/kg (285-295); Potassium 4.4 mmol/L (3.5-5.1); Sodium 136 mmol/L (136-145); Total Protein 6.7 g/dL (6.6-8.7)
[2025-03-18] MEDS: magnesium sulfate premix 2 GM/50 ML PIGGYBACK IV (09:20)
[2025-03-18] MEDS: sodium chlor 0.9% + KCl 20 mEq 20 MEQ/1,000 ML BAG 500 MEQ IV (09:20)
--- NOTE | 2025-03-18 09:38 | N.ONRD TS_ITS ---
Radiation Oncology Treatment Summary Patient: Richar Bailey MR#: [id number] : 1940 Age: 84 Sex: Male Dictated by: Dr. 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 ID: PTV 70, Energy: 6X, Dose/Fx (cGy): 200, #Fx: 35 / 35, Dose Correction (cGy): 0, Total Dose Delivered (cGy): 7,000, Start Date: 01/28/2025, End Date: 03/18/2025, Elapsed Days: 49 Clinical Summary: The patient tolerated RT well. He maintained all nutrition via mouth. PEG tube was not used. At the end of treatment all visible malignancy was gone. He had neck erythema with no desquamation. Plan: End of treatment today. Continue on the above medication until the skin reaction resolves. Follow up in one month. Signed by: Dr. Ba Zuniga>03/18/2025 9:37:00 AM <<Signature on File>>
[2025-03-18] MEDS: aprepitant 130 mg/18 ml SDV IVP (10:59)
[2025-03-18] MEDS: diphenhydrAMINE 50 mg/mL SDV 1mL 25 MG IVP (11:11)
[2025-03-18] MEDS: CISPLATIN IV (11:32)
[2025-03-18] MEDS: SODIUM CHLORIDE 0.9% IV (11:32)
[2025-03-18] MEDS: FUROsemide 10 mg/mL SDV 2mL 20 MG IVP (12:44)
[2025-03-18 13:41] VITALS: BP 127/59; PULSE 56; RESP 18; TEMP 36.6; O2SAT 99
== END 2025-04-06 23:59 | disposition home or self-care (01) ==
PROVIDERS: Internal Medicine; Nurse Practitioner Family; PCP Nurse Practitioner Family; Referring Provider Anesthesiology; Visit Provider Radiology Radiation Oncology
DX: Z53.9 Procedure and treatment not carried out, unspecified reason; Z51.11 Encounter for antineoplastic chemotherapy; Z51.0 Encounter for antineoplastic radiation therapy; C01 Malignant neoplasm of base of tongue; C77.0 Secondary and unspecified malignant neoplasm of lymph nodes of head, face and neck; R03.0 Elevated blood-pressure reading, without diagnosis of hypertension; D69.6 Thrombocytopenia, unspecified; Z79.52 Long term (current) use of systemic steroids; Z79.899 Other long term (current) drug therapy; Z87.891 Personal history of nicotine dependence; L58.0 Acute radiodermatitis
CPT/HCPCS: 36415; 77336; 77386; 80053; 85025; 96366; 96367; 96368; 96375; 96413; 99024; 99214; J0185; J1100; J1200; J1938; J2469; J3475; J3480; J3490; J7040; J7050; J9060; J9999

== ENCOUNTER 2025-04-08 15:01 | Outpatient (CLI) | payer MEDICARE, SELFPAY ==
--- NOTE | 2025-04-08 15:07 | MR_ITS ---
WS: [id number] MRI NECK WITH CONTRAST TECHNIQUE: Noncontrast axial T1, axial T2 FSE fat sat, coronal T2 fat sat, coronal T1, coronal T1 fat sat, sagittal T2 fat sat, plus contrast enhanced coronal, sagittal, and axial T1 fat sat images obtained. CLINICAL INFORMATION: MALIGNANT NEOPLASM BASE OF TONGUE COMPARISON: PET/CT 01/15/2025 and MRI 12/16/2024 FINDINGS: Images limited by patient motion and respiratory artifact Previously described neoplasm in the LEFT tongue base extending to the floor of mouth has been treated in the interval. This has significantly improved with treatment-related changes in the base of tongue. No focal enhancing lesions considering motion artifact and limitations today. Findings compatible with interval response to therapy. Previously described lymphadenopathy appears to have improved/resolved. Paranasal sinuses are well aerated. Mastoid air cells are well aerated. Normal posterior nasopharynx. Normal vallecula and piriform sinuses. Subglottic airway is patent. MR/MR orbit face neck wo/w* [id number] IMPRESSION: 1. Significant improvement/resolution of the previously described LEFT base of tongue neoplasm and lymphadenopathy. Images are somewhat limited on this study today however findings compatible with interval response to therapy with no vi sualized areas of enhancing disease. PET/CT would be more sensitive to evaluate for residual active disease 2. Small subcutaneous nodule abutting the skin in the left ear lobule in the a kade of reported concern. This is not typical for metastatic disease and and may represent inflammatory sebaceous cyst or fat necrosis. See bookmarked images. PET/CT could assess for active uptake. Probably a small amount of enhancement i n this area but difficult to further evaluate due to peripheral location
[2025-04-08] MEDS: gadobenate dimeglumine 20 mL vial 18 ML IV (16:16)
== END 2025-04-08 15:02 | disposition home or self-care (01) ==
LOC: RAD 15:03
PROVIDERS: PCP Family Medicine; Visit Provider Specialist
DX: C02.9 Malignant neoplasm of tongue, unspecified (principal); R22.9 Localized swelling, mass and lump, unspecified
CPT/HCPCS: 70543

== ENCOUNTER 2025-04-15 08:20 | Oncology outpatient (recurring) (ONCR) | payer MEDICARE, SELFPAY ==
[2025-04-15 08:50] LABS: Hematocrit 33.4 % (37-53); Hemoglobin 11.20 g/dL (11.27-16.99); Mean Corpuscular HGB Conc 33.5 g/dL (30-55); Mean Corpuscular Hemoglobin 32.3 pg (27-33); Mean Corpuscular Volume 96.3 fl (82-101); Nucleated Red Blood Cells % 0 %; Platelet Count 116 10^3/cmm (157-399); Red Blood Count 3.47 10^6/uL (3.85-5.65); White Blood Count 4.30 10^3/uL (3.29-11.43)
[2025-04-15 09:07] LABS: Alanine Aminotransferase 16 U/L (0-41); Albumin Level 4.4 g/dL (3.5-5.2); Alkaline Phosphatase 66 U/L (40-130); Anion Gap 16.2 (5-19); Aspartate Amino Transferase 17 U/L (0-40); Blood Urea Nitrogen 16 mg/dL (8-23); Calcium 10.0 mg/dL (8.5-10.5); Carbon Dioxide 24 mmol/L (22-29); Chloride 101 mmol/L (98-107); Creatinine Clr Calc Pharmacy 54.4575; Globulin 2.6 g/dL (1.3-4.6); Glucose 118 mg/dL (65-115); Osmolality Calculated 286 mOsm/kg (285-295); Potassium 4.2 mmol/L (3.5-5.1); Sodium 137 mmol/L (136-145); Total Protein 7.0 g/dL (6.6-8.7)
--- NOTE | 2025-04-15 09:23 | ONCRAD EPV_ITS ---
Radiation Oncology Established Patient Visit Patient: Richar Bailey [id number] : 1940 Age: 84 Sex: Male Dictated by: Dr. Yessi Duarte Date of Service: 04/15/2025 Referring Physician(s) : Dr. 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 ID: PTV 70, Energy: 6X, Dose/Fx (cGy): 200, #Fx: 35 / 35, Dose Correction (cGy): 0, Total Dose Delivered (cGy): 7,000, Start Date: 01/28/2025, End Date: 03/18/2025, Elapsed Days: 49 Current History: Patient is a 84-year-old gentleman who completed radiation and chemotherapy for a squamous of carcinoma the base of tongue a month ago. He never used his PEG tube. He continues to eat real foods that have been pur???ed. His weight has remained stable since he completed treatment. He even had an MRI of his neck that was not specifically looking at the primary lesion itself but declare that it had resolved. He now has a small cyst in the left earlobe. He has begun to get a little bit of his taste back. His only complaint today is any when he puts in his dentures it causes burning. Current Medications: acetaminophen ER (Tylenol Arthritis Pain) 650 mg PO Q12H lisinopril mg PO verapamil ER mg PO Allergies: No Known Drug Allergies Allergy Current Complaints / Review of Systems: . Vital Signs: Performed on 04/15/2025 8:55 AM BMI - 26.457 kg/m2 (high), Height - 68 in, Weight - 174 lbs, Temperature - 98.4 f, Pulse - 69 /min, Respiration - 16 /min, O2 Sat - 99 %, Pain - 0, Fatigue - 0 and BP - 173/ 81 mm(hg)(high/). Physical Exam: General: Alert and oriented x 3. No acute distress. HEENT: Normocephalic, atraumatic. Extraocular Movements Intact: Pupils Equal, Round, Reactive to Light and Accommodation: Sclerae anicteric. Oral cavity is clear without lesions but appears to have a coating of thrush on his tongue NECK: Supple without supraclavicular or jugular lymphadenopathy. Skin is healed up nicely Performance Status: 100 Lab: None pending. Pathology: Primary, c01 - malignant neoplasm of base of tongue, Diagnosed 12/23/2024 (active) and Primary, c77.0 - secondary and unspecified malignant neoplasm of lymph nodes of head, face and neck, Diagnosed 12/16/2024 (active) . Imaging: See HPI Impression: Squamous carcinoma base of tongue 1 month from completion of treatment Plan: At this point we talked about how he looks like he may have thrush as well that may be causing the burning in his mouth. I will send a prescription for Diflucan for this. He will also be due for a PET scan in 8 weeks and we will get that scheduled. At some point we need to get his feeding tube out since he has never used it. This point we will see him back after he gets his PET scan coordinated with medical oncology Signed by: 04/15/2025 9:22:17 AM <<Signature on File>> Time spent with patient:20 CPT Code: CPT Code:
== END 2025-05-07 23:59 | disposition home or self-care (01) ==
PROVIDERS: Nurse Practitioner Family; PCP Family Medicine; Referring Provider Anesthesiology; Visit Provider Internal Medicine
DX: Z53.9 Procedure and treatment not carried out, unspecified reason; Z08 Encounter for follow-up examination after completed treatment for malignant neoplasm; Z85.810 Personal history of malignant neoplasm of tongue; D69.6 Thrombocytopenia, unspecified; Z87.891 Personal history of nicotine dependence; Z92.3 Personal history of irradiation; Z92.21 Personal history of antineoplastic chemotherapy; D64.9 Anemia, unspecified; Z95.828 Presence of other vascular implants and grafts; Z93.1 Gastrostomy status; K14.6 Glossodynia
CPT/HCPCS: 36591; 80053; 85025; 99024; 99213

== ENCOUNTER → 2025-04-28 09:08 | Outpatient (BNVA) | payer MEDICARE, SELFPAY | PROVIDERS: PCP Family Medicine; Visit Provider Surgery | DX: Z95.828 Presence of other vascular implants and grafts (principal); C01 Malignant neoplasm of base of tongue; D69.6 Thrombocytopenia, unspecified | CPT/HCPCS: 99214 ==

== ENCOUNTER 2025-06-02 09:30 | Oncology outpatient (recurring) (ONCR) | payer MEDICARE, SELFPAY ==
--- NOTE | 2025-05-28 09:00 | PETR_ITS ---
PROCEDURE INFORMATION: Exam: PET/CT Skull Base to Mid-thigh Exam date and time: 05/28/2025 8:51 AM Age: 84 years old Clinical indication: Condition or disease; Primary cancer: Base of tongue cancer LABS AND CLINICAL REPORTS: Glucose: 150 mg/dl Treatment strategy for malignancy (PET staging): Restaging (PS) TECHNIQUE: Imaging protocol: Following at least four-hour fasting and following the injection of radiopharmaceutical, low dose CT images were obtained. Then, PET images were obtained. Attenuation corrected images were constructed using the CT scan. Fused images of PET and CT were reviewed. The standardized uptake values (SUV) reported below are maximum values within a region of interest, expressed in gm/ml. Exam includes orbital meatal line to mid-thigh. SUV normalization method: BodyWeight Radiopharmaceutical: 12.01 mCi F-18 FDG (Fluorodeoxyglucose), IV. Time of imaging post radiopharmaceutical administration: 45 minutes Injection site: left ac COMPARISON: PT PET skull to thigh INIT [id number] 01/15/2025 2:00 PM FINDINGS: Tubes, catheters and devices: Right chest wall chemo port with tip at the cavoatrial junction. Brain: Visualized brain has normal physiologic uptake. Oral cavity: Interval decrease in size and FDG uptake of a left tongue base mass, now measuring approximately 3.8 x 1.5 cm (previously 4.9 x 3.4 cm), maximum SUV 3 (previously 14.9). Pharynx: No abnormal uptake. Larynx: No abnormal uptake. Lungs, pleura and trachea: No abnormal uptake. Scattered calcified granulomas. No suspicious lesion. Heart: Normal physiologic uptake. Severe coronary artery calcifications. Mild aortic valvular calcifications. Mediastinal space: No abnormal uptake. Liver: No abnormal uptake. Punctate calcifications, consistent with remote granulomatous organism exposure. Gallbladder and biliary ducts: No abnormal uptake. Pancreas: No abnormal uptake. Spleen: No abnormal uptake. Calcifications, consistent with remote granulomatous organism exposure. Adrenal glands: No abnormal uptake. Kidneys and ureters: Normal physiologic uptake. Scattered simple cysts. Stomach and bowel: No abnormal uptake. Reproductive: Prostatomegaly, measuring 5.0 cm in maximal transverse dimension. Nonspecific prostate calcification. No abnormal uptake. Vasculature: No abnormal uptake. Stable mild dilation of the infrarenal abdominal aorta up to 2.7 cm. Dilation of the main pulmonary artery up to 3.5 cm, which suggests pulmonary arterial hypertension. Lymph nodes: Resolution of previously noted FDG avid bilateral cervical lymphadenopathy. No abnormal visualized cynthia uptake. Skeleton: No abnormal uptake in the visualized axial and appendicular skeleton. Soft tissues: No abnormal uptake in the visualized head, neck, chest, abdomen, pelvis, and extremities. METRICS: Mediastinal blood pool: Mean SUV of 0.2 Liver uptake: Mean SUV of 2.8 PET/PET skull to thigh SUBS [id number] IMPRESSION: 1. Significant decrease in size and FDG uptake of a left tongue base mass resolution, consistent with positive treatment response. There is minimal residual uptake. 2. Complete resolution of previously noted FDG avid cervical lymphadenopathy. 3. Additional chronic ancillary findings as above.
[2025-06-02 09:45] LABS: Hematocrit 35.3 % (37-53); Hemoglobin 12.00 g/dL (11.27-16.99); Mean Corpuscular HGB Conc 34.0 g/dL (30-55); Mean Corpuscular Hemoglobin 31.9 pg (27-33); Mean Corpuscular Volume 93.9 fl (82-101); Nucleated Red Blood Cells % 0 %; Platelet Count 111 10^3/cmm (157-399); Red Blood Count 3.76 10^6/uL (3.85-5.65); White Blood Count 5.42 10^3/uL (3.29-11.43)
[2025-06-02 10:13] LABS: Alanine Aminotransferase 13 U/L (0-41); Albumin Level 4.1 g/dL (3.5-5.2); Alkaline Phosphatase 59 U/L (40-130); Anion Gap 16.5 (5-19); Aspartate Amino Transferase 15 U/L (0-40); Blood Urea Nitrogen 26 mg/dL (8-23); Calcium 9.7 mg/dL (8.5-10.5); Carbon Dioxide 24 mmol/L (22-29); Chloride 102 mmol/L (98-107); Ferritin 353 ng/mL (30-400); Globulin 2.5 g/dL (1.3-4.6); Glucose 109 mg/dL (65-115); Iron 66 ug/dL (59-158); Osmolality Calculated 291 mOsm/kg (285-295); Potassium 4.5 mmol/L (3.5-5.1); Sodium 138 mmol/L (136-145); Total Iron Binding Capacity 276 mcg/dl; Total Protein 6.6 g/dL (6.6-8.7); Unsaturated Iron Binding 210 ug/dL (112-347)
--- NOTE | 2025-06-02 10:26 | ONCRAD EPV_ITS ---
Radiation Oncology Established Patient Visit Patient: Lynn Mcqueen [id number] : 1940> Age: 84> Sex: Male> Dictated by: Israel Torres Date of Service: 06/02/2025 Referring Physician(s) : Dr. 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 ID: PTV 70, Energy: 6X, Dose/Fx (cGy): 200, #Fx: 35 / 35, Dose Correction (cGy): 0, Total Dose Delivered (cGy): 7,000, Start Date: 01/28/2025, End Date: 03/18/2025, Elapsed Days: 49 Current History: This is a pleasant 84-year-old male comes back 3 months after receiving definitive XRT to LEFT BOT. He complains of poor taste but is able to taste sugars and salt. He also complains of to new areas of skin abnormalities on the left side of his face and left helix. Patient recently underwent PET CT evaluation on 05/28/2025. Results showed reduction from 16.66-5.7 and SUV from 14.9 down to 3. There was no abnormal lymph nodes noted at this time. Patient originally underwent PET exam on 05/21/2025 but had extravasation of the isotope. Current Medications: acetaminophen ER (Tylenol Arthritis Pain) 650 mg PO Q12H amoxicillin-pot clavulanate 875-125 mg 1 tab PO BID cephalexin 500 mg PO Q8H 7 days famotidine 20 mg PO BID fluconazole 100 mg PO DAILY lidocaine HCl 2% (Lidocaine Viscous) 5 mL PO Q6H lidocaine-prilocaine 2.5-2.5 % 1 applic topical ONCE lisinopril 30 mg PO DAILY ondansetron HCl 4 mg PO Q6H PRN pilocarpine HCl 5 mg PO QID MDD 30 mg polyethylene glycol 3350 (Miralax) 17 grams PO DAILY prochlorperazine maleate (Compazine) 10 mg PO Q4H PRN verapamil ER 240 mg PO DAILY Allergies: No Known Allergies Current Complaints / Review of Systems: As above Vital Signs: Performed on 06/02/2025 9:25 AM BMI - 26.578 kg/m2 (high), Height - 68 in, Weight - 174.8 lbs, Temperature - 98 f, Pulse - 77 /min, Respiration - 18 /min, Diastolic - 174 mm(hg) (high), O2 Sat - 78 % (low), Pain - 0 and Fatigue - 0. Physical Exam: General: Alert and oriented x 3. No acute distress. HEENT: Normocephalic, atraumatic. Extraocular Movements Intact: Pupils Equal, Round, Reactive to Light and Accommodation: Sclerae anicteric. Oral cavity is clear without lesions, masses or ulcers. Actinic keratosis noted in the mid left cheek area measuring 1 x 1 cm. In the left helix area he has a 0.5 x 0.5 cm blackened area that does not bleed. It has smooth borders. NECK: Supple without supraclavicular or jugular lymphadenopathy. LUNGS: Clear to auscultation bilaterally without rales, rhonchi or wheeze. HEART: Regular rate and rhythm, normal S1 and S2 without murmur, gallop or rub. MUSCULOSKELETAL: No tenderness or percussion pain over the axial skeleton, scapulae or pelvis. ABDOMEN: Soft, nontender, nondistended without masses or organomegaly. Bowell sounds are present. EXTREMITIES: No peripheral edema is identified. Limited motor and sensory examination are grossly intact and symmetric bilaterally. NEUROLOGIC: Cranial nerves II ???XII are grossly intact. Normal sensation, strength 5/5 in all extremities, normal gait, no ataxia. Performance Status: KPS 90 Lab: None pending. Pathology: Primary, c01 - malignant neoplasm of base of tongue, Diagnosed 12/23/2024 (active) and Primary, c77.0 - secondary and unspecified malignant neoplasm of lymph nodes of head, face and neck, Diagnosed 12/16/2024 (active) . Imaging: See HPI Impression: Resolving LEFT BOT tumor 66% reduction in tumor mass and 80% reduction in SUV. No lymphadenopathy at this time PLAN: RTC in 3 months or sooner if need be Patient to see Dr. Jasmine today. Repeat PET/CT in 6 months. Signed by: 06/02/2025 10:24:41 AM <<Signature on File>> Time spent with patient/daughter/review of records/doc prep: 40 minutes CPT Code: CPT Code:
[2025-06-02 10:28] LABS: Vitamin B12 447 pg/mL (232-1245)
== END 2025-06-06 23:59 | disposition home or self-care (01) ==
PROVIDERS: Internal Medicine; PCP Family Medicine; Referring Provider Anesthesiology; Visit Provider Radiology Radiation Oncology
DX: Z53.9 Procedure and treatment not carried out, unspecified reason; Z08 Encounter for follow-up examination after completed treatment for malignant neoplasm; Z85.810 Personal history of malignant neoplasm of tongue; D69.6 Thrombocytopenia, unspecified; Z87.891 Personal history of nicotine dependence; Z92.21 Personal history of antineoplastic chemotherapy; Z95.828 Presence of other vascular implants and grafts
CPT/HCPCS: 36591; 78815; 80053; 82607; 82728; 82746; 83010; 83540; 83550; 83615; 85025; 85045; 99213; A9552

== ENCOUNTER 2025-06-24 14:56 | Oncology outpatient (recurring) (ONCR) | payer MEDICARE, SELFPAY ==
[2025-06-24 16:39] LABS: Hematocrit 35.0 % (37-53); Hemoglobin 11.80 g/dL (11.27-16.99); Mean Corpuscular HGB Conc 33.7 g/dL (30-55); Mean Corpuscular Hemoglobin 31.4 pg (27-33); Mean Corpuscular Volume 93.1 fl (82-101); Nucleated Red Blood Cells % 0 %; Platelet Count 111 10^3/cmm (157-399); Red Blood Count 3.76 10^6/uL (3.85-5.65); White Blood Count 4.68 10^3/uL (3.29-11.43)
[2025-06-24 16:52] LABS: Alanine Aminotransferase 12 U/L (0-41); Albumin Level 4.3 g/dL (3.5-5.2); Alkaline Phosphatase 58 U/L (40-130); Anion Gap 14.2 (5-19); Aspartate Amino Transferase 15 U/L (0-40); Blood Urea Nitrogen 32 mg/dL (8-23); Calcium 9.9 mg/dL (8.5-10.5); Carbon Dioxide 27 mmol/L (22-29); Chloride 101 mmol/L (98-107); Globulin 2.2 g/dL (1.3-4.6); Glucose 105 mg/dL (65-115); Osmolality Calculated 293 mOsm/kg (285-295); Potassium 4.2 mmol/L (3.5-5.1); Sodium 138 mmol/L (136-145); Total Protein 6.5 g/dL (6.6-8.7)
== END 2025-07-07 23:59 | disposition home or self-care (01) ==
LOC: ONCMED 14:56
PROVIDERS: Nurse Practitioner; PCP Family Medicine; Referring Provider Anesthesiology; Visit Provider Radiology Radiation Oncology
DX: Z53.9 Procedure and treatment not carried out, unspecified reason (principal); Z08 Encounter for follow-up examination after completed treatment for malignant neoplasm; Z85.810 Personal history of malignant neoplasm of tongue; D69.6 Thrombocytopenia, unspecified; Z87.891 Personal history of nicotine dependence; Z92.21 Personal history of antineoplastic chemotherapy; Z95.828 Presence of other vascular implants and grafts; C01 Malignant neoplasm of base of tongue; J84.10 Pulmonary fibrosis, unspecified; I25.10 Atherosclerotic heart disease of native coronary artery without angina pectoris; I35.8 Other nonrheumatic aortic valve disorders; K76.89 Other specified diseases of liver; D73.89 Other diseases of spleen; N28.1 Cyst of kidney, acquired; N40.0 Benign prostatic hyperplasia without lower urinary tract symptoms; N42.89 Other specified disorders of prostate; R93.89 Abnormal findings on diagnostic imaging of other specified body structures
CPT/HCPCS: 80053; 83615; 85025; 99213